=== PATIENT | female | born 1965 | race Caucasian/White ===

== ENCOUNTER 2020-08-16 10:27 | Emergency (ER) | payer BC, OTHER ==
[2020-08-16 10:39] VITALS: TEMP 98
[2020-08-16] MEDS ORDERED: KETOROLAC 15 MG/ML 1 ML VIAL IM STA (10:59)
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
[2020-08-16 11:50] VITALS: RESP 18
[2020-08-16 12:12] VITALS: BP 126/80; PULSE 88
--- NOTE | 2020-08-16 12:32 | XR ---
Result: History: Rib pain. Comparison: None available. Technique: 8 views of the bilateral ribs. Findings: There is no definite displaced rib fracture. The visualized osseous structures are in anatomic align ment. The visualized lungs and cardiomediastinal silhouette are within normal limits. Impression: No definite displaced rib fracture is seen.
== END 2020-08-16 12:56 | disposition home or self-care (01) ==
LOC: EC 10:27
DX: R07.81 Pleurodynia (principal); F17.200 Nicotine dependence, unspecified, uncomplicated; Z88.2 Allergy status to sulfonamides
CPT/HCPCS: 71110; 99284; 96372; J1885